=== PATIENT | female | born 1990 | race Caucasian/White ===

== ENCOUNTER 2016-06-28 01:40 | Emergency (ER) | payer BC ==
[2016-06-28 01:56] VITALS: TEMP 98.8; O2SAT 98
[2016-06-28] MEDS ORDERED: PENICILLIN BENZATHINE 1.2 MU 1.2 MU/2 ML SYG IM ONE ×2 (02:23→02:25)
--- NOTE | 2016-06-28 02:26 | ED.PDOC ---
History of Present Illness - General Chief Complaint: ENT Problem Stated Complaint: sore throat Time Seen by Provider: 06/28/16 02:23 Source: patient Exam Limitations: no limitations - History of Present Illness Initial Comments: The patient is a 26-year-old female presenting to the emergency room secondary to 24 hours of low-grade fever, malaise and sore throat. No shortness of breath. No runny nose. No chest pain. No nausea or vomiting. Timing/Duration: 24 hours Severity: mild Improving Factors: nothing Worsening Factors: nothing Allergies/Adverse Reactions: Allergies NO KNOWN ALLERGY Allergy (Verified 01/29/14 21:11) Home Medications: Ambulatory Orders Cyclobenzaprine HCl [Flexeril] 10 mg PO TID PRN #20 tab 07/22/15 Ibuprofen 800 mg PO Q8HRS PRN #30 tab 07/22/15 Review of Systems - Review of Systems Constitutional: States: malaise EENTM: States: throat pain Respiratory: States: no symptoms reported Cardiology: States: no symptoms reported Gastrointestinal/Abdominal: States: no symptoms reported Genitourinary: States: no symptoms reported Musculoskeletal: States: no symptoms reported Skin: States: no symptoms reported Neurological: States: no symptoms reported Endocrine: States: no symptoms reported All other Systems: No Change from Baseline Past Medical History (General) - Patient Medical History Hx Diabetes: No - Vaccination History Hx Influenza Vaccination: No - Social History Hx Tobacco Use: No - Female History Patient is a Female of Child Bearing Age (10 -59 yrs old): Yes Patient : No Family Medical History - Family History Mother Family History: Unknown Physical Exam - Physical Exam General Appearance: Alert, Comfortable, No apparent distress Eye Exam: bilateral normal Ears, Nose, Throat: hearing grossly normal, pharyngeal erythema Neck: non-tender, full range of motion Respiratory: chest non-tender, lungs clear, normal breath sounds, no respiratory distress, no accessory muscle use Cardiovascular/Chest: normal peripheral pulses, regular rate, rhythm, no edema Peripheral Pulses: radial,right: 2+, radial,left: 2+ Gastrointestinal/Abdominal: soft Rectal Exam: deferred Back Exam: normal inspection Extremity: normal range of motion, non-tender, normal inspection, no pedal edema , normal capillary refill Neurologic: alert, normal mood/affect, oriented x 3 Skin Exam: normal color Comments: Vital Signs - 24 hr 06/28/16 01:54 Temperature 98.8 F Pulse Rate [ 89 Right] Respiratory 18 Rate Blood Pressure 119/77 [Right Arm] O2 Sat by Pulse 98 Oximetry Progress - Progress Progress: 06/28/16 02:25 the patient is a 26-year-old female presenting with streptococcal pharyngitis. Strep test was positive. Influenza test was negative. The patient needs to keep herself well hydrated. Motrin can be used for discomfort. She was given a dose of Bicillin LA here today. ER warnings are given for any worsening. She can otherwise follow up with her primary care doctor as previously recommended. Departure - Departure Clinical Impression: Streptococcal sore throat Disposition: Discharge to Home or Self Care Condition: Fair Departure Forms: ED Discharge - Pt. Copy, Patient Portal Self Enrollment Instructions: DI for Strep Throat Diet: regular diet Activity: increase activity as tolerated Referrals: Simran Daley NP [Primary Care Provider] - 1-2 Weeks Home Medications: Ambulatory Orders Cyclobenzaprine HCl [Flexeril] 10 mg PO TID PRN #20 tab 07/22/15 Ibuprofen 800 mg PO Q8HRS PRN #30 tab 07/22/15 Additional Instructions: the patient is a 26-year-old female presenting with streptococcal pharyngitis. Strep test was positive. Influenza test was negative. The patient needs to keep herself well hydrated. Motrin can be used for discomfort. She was given a dose of Bicillin LA here today. ER warnings are given for any worsening. She can otherwise follow up with her primary care doctor as previously recommended.
[2016-06-28 02:44] VITALS: BP 120/67
== END 2016-06-28 02:44 | disposition home or self-care (01) ==
LOC: ER 01:40
DX: J02.0 Streptococcal pharyngitis (principal)
CPT/HCPCS: 87502; 87651; J0561

== ENCOUNTER → 2017-07-18 | Outpatient (CLI) | payer BC ==
--- NOTE | 2017-07-20 09:06 | US ---
EXAM DESCRIPTION: Abdomen,Complete CLINICAL HISTORY: ELEVATED LIVER ENZYMES COMPARISON: None. TECHNIQUE: Real-time sonographic images of the abdomen are obtained. FINDINGS: Pancreas is unremarkable. The right lobe of the liver measures 15.3 cm. The liver is diffusely heterogeneous and increased in echogenicity. No focal hepatic mass is seen. The gallbladder is normally distended and free of abnormal internal echogenicities. No gallbladder wall thickening or pericholecystic fluid is seen. The common bile duct measures 4.9 mm in greatest diameter. The right kidney measures 11.2 x 4.4 x 5.3 cm. The left kidney measures 11.1 x 5.0 x 5.3 cm. Both kidneys show normal renal cortical echogenicity. No hydronephrosis is seen. The spleen measures 12.6 cm. Visualized IVC and abdominal aorta are within normal limits. IMPRESSION: Liver is normal size, but significantly heterogeneous and increased in echogenicity limiting penetration by ultrasound. There is poor visualization of the posterior aspect of the liver. This finding could indicate diffuse fatty infiltration although other etiologies can have a similar appearance. Otherwise unremarkable abdominal ultrasound. Electronically signed by: Abdullahi Ruffin MD 07/20/2017 9:05 AM [facility]
== END ==
LOC: US 07:57
PROVIDERS: ATTEND Nurse Practitioner Family
DX: R74.8 Abnormal levels of other serum enzymes (principal)

== ENCOUNTER 2018-08-19 17:18 | Emergency (ER) | payer SELFPAY ==
[2018-08-19 17:31] VITALS: O2SAT 98
[2018-08-19] MEDS ORDERED: DEXAMETHASONE INJ 10 MG/ML VIAL IM ONE (18:12)
--- NOTE | 2018-08-19 18:30 | ED.PDOC ---
History of Present Illness - General Chief Complaint: Fever Stated Complaint: fever x3 days Time Seen by Provider: 08/19/18 18:12 Source: patient Exam Limitations: no limitations - History of Present Illness Initial Comments: C/O ST, FEVER, SWEATS FOR 3 DAYS. WAS RECENTLY TREATED WITH PCN FOR STREP THROAT. WAS BETTER INITIALLY THEN STARTED FEELING BAD AGAIN PAST 3 DAYS[address] NOW WIT H ST AND DIFFICULTY SWALLOWING. Severity: moderate Improving Factors: nothing Worsening Factors: nothing Associated Symptoms: diaphoresis, fever/chills Allergies/Adverse Reactions: Allergies NO KNOWN ALLERGY Allergy (Verified 01/29/14 21:11) Home Medications: Ambulatory Orders Amoxicillin & Pot Clavulanate [Augmentin] 1 tab PO BID #20 tab 08/19/18 Citalopram Hydrobromide [Citalopram] 40 mg PO DAILY 08/19/18 Review of Systems - Review of Systems Constitutional: States: chills, diaphoresis, fever EENTM: States: throat pain. Denies: ear pain, nose congestion Respiratory: States: short of breath. Denies: cough, stridor, wheezing Cardiology: Denies: chest pain, palpitations, syncope Gastrointestinal/Abdominal: Denies: abdominal pain, diarrhea, nausea, vomiting Genitourinary: States: no symptoms reported Musculoskeletal: States: no symptoms reported Skin: States: other - HAS HAD SOME SWEATY EPISODES RECENTLY Neurological: States: no symptoms reported Endocrine: States: no symptoms reported Hematologic/Lymphatic: States: no symptoms reported Past Medical History (General) - Patient Medical History Hx Seizures: No Hx Congestive Heart Failure: No Hx Thyroid Disease: No Hx Diabetes: No Hx Gastroesophageal Reflux: No Hx Renal Disease: Yes Surgical History: other - Vaccination History Hx Influenza Vaccination: No - Social History Hx Tobacco Use: No - Female History Patient is a Female of Child Bearing Age (10 -59 yrs old): Yes Patient : No Family Medical History - Family History Mother Family History: Unknown Physical Exam - Physical Exam General Appearance: Comfortable, No apparent distress, Obese Eye Exam: bilateral normal Ears, Nose, Throat: hearing grossly normal, other - TM'S NL, OP ERYTHEMA, TONSILLAR HYPERTROPHY, EARLY EXUDATE. Neck: non-tender, full range of motion, supple, other - TENDER ANT CHAIN A DENOPATHY Respiratory: lungs clear, normal breath sounds, no accessory muscle use Cardiovascular/Chest: regular rate, rhythm, no murmur Gastrointestinal/Abdominal: non tender, soft, no organomegaly Back Exam: normal inspection, no CVA tenderness Extremity: normal range of motion, non-tender Neurologic: alert, normal mood/affect Skin Exam: normal color, warm/dry Lymphatic: other - TENDER ANT CHAIN ADENOPATHY Progress - Progress Progress: 08/19/18 19:48 VSS, SATS 98% RA (NL), Departure - Departure Clinical Impression: Streptococcal pharyngitis ICD-10 Supporting Text: (PARTIALLY TREATED) Time of Disposition: 19:50 Disposition: Discharge to Home or Self Care Condition: Good Departure Forms: ED Discharge - Pt. Copy, Patient Portal Self Enrollment Instructions: Sore Throat, Adult (DC) Referrals: Emma Garcia NP [Primary Care Provider] - 1-2 Weeks Prescriptions: Amoxicillin & Pot Clavulanate [Augmentin] 1 tab PO BID #20 tab Home Medications: Ambulatory Orders Amoxicillin & Pot Clavulanate [Augmentin] 1 tab PO BID #20 tab 08/19/18 Citalopram Hydrobromide [Citalopram] 40 mg PO DAILY 08/19/18 Additional Instructions: WARM SALT WATER GARGLES, SEE YOUR DOCTOR IN 2-3 DAYS
[2018-08-19] MEDS ORDERED: cefTRIAXone SODIUM 1 GM VIAL IM ONE (19:51)
[2018-08-19] MEDS ORDERED: LIDOCAINE 1% 2 ML VIAL INJ ONE (19:55)
[2018-08-19 20:10] VITALS: BP 139/91; TEMP 99.1
== END 2018-08-19 20:10 | disposition home or self-care (01) ==
LOC: ER 17:18
DX: J02.0 Streptococcal pharyngitis (principal); N18.9 Chronic kidney disease, unspecified
CPT/HCPCS: 36415; 86403; 87880; J0696; J1100